=== PATIENT | male | born 1935 | race Caucasian/White ===

== ENCOUNTER → 2017-10-05 | Outpatient (CLI) | payer MEDICARE | END | disposition home or self-care (01) | LOC: CDC 12:00 | DX: Z01.810 Encounter for preprocedural cardiovascular examination (principal); I70.25 Atherosclerosis of native arteries of other extremities with ulceration; R94.31 Abnormal electrocardiogram [ECG] [EKG] | CPT/HCPCS: 93000 ==

== ENCOUNTER 2017-10-17 22:43 | Inpatient (IN) | payer OTHER ==
[~2017-10-17] VITALS: Ht 167.6 cm; Wt 77.2 kg
[~2017-10-17 22:43] MED LIST: FISH OIL 1,0001 EA10 PO; HYDROCHLOROTHIA25 MG PO; LIPITOR20 MG PO; LO-DOSE ASPIRIN81 M1 PO; LOTREL 5/201 CAPSULE PO
[2017-10-18] VITALS (11 sets, daily range): BP systolic 128–1278; BP diastolic 69–98
[2017-10-19 04:00] VITALS: BP 139/73
[2017-10-19 07:05] VITALS: BP 151/69
[2017-10-19] MEDS ORDERED: HYDROCODON-ACE1 EAC7 PO (08:55)
== END 2017-10-19 10:29 | disposition home or self-care (01) | DRG 39 ==
LOC: ENRESERV 22:43 → 2SOUTH 10-18 06:09 → ENRESERV 10-18 12:48 → 4WEST 10-18 15:05 → ENRESERV 10-18 21:03 → 4EAST 10-18 21:25
PROC: 03CK0ZZ Extirpation of Matter from Right Internal Carotid Artery, Open Approach (ICD-10-PCS; principal; 2017-10-18)
PROC: 03UK0JZ Supplement Right Internal Carotid Artery with Synthetic Substitute, Open Approach (ICD-10-PCS; principal; 2017-10-18)
DX: I65.21 Occlusion and stenosis of right carotid artery (principal); I10 Essential (primary) hypertension; I25.2 Old myocardial infarction; M19.90 Unspecified osteoarthritis, unspecified site; Z87.891 Personal history of nicotine dependence; Z79.82 Long term (current) use of aspirin
CPT/HCPCS: 87641; 93005; J0690; J1644; J1650; J2250; J2405; J2720; J2795; J3010; J7120; S0020